=== PATIENT | male | born 1980 ===

== ENCOUNTER 2020-10-08 02:23 | Day surgery (SDC) | payer BC ==
[2020-10-08] MEDS ORDERED: FLUCONAZOLE PO (15:02)
[2020-10-08] MEDS ORDERED: VENLAFAXINE HC225 MG PO (15:02)
[2020-10-08] MEDS ORDERED: TOPIRAMATE ER25 MG PO (15:03)
[2020-10-08] MEDS ORDERED: DEPO-TESTO200 MG/14 IM (15:04)
--- NOTE | 2020-10-08 17:12 | NUR ---
PT MONITORED Q 15 MINUTES DURING INFUSION AND FOR ONE HOUR AFTER. NO S/S OF RXN. DC'D AMB WITH STEADY GAIT.
== END 2020-10-08 16:30 | disposition home or self-care (01) ==
LOC: ATC 02:23
DX: U07.1 COVID-19 (principal); E78.5 Hyperlipidemia, unspecified; G47.33 Obstructive sleep apnea (adult) (pediatric); E66.9 Obesity, unspecified; Z68.33 Body mass index [BMI] 33.0-33.9, adult
CPT/HCPCS: 96365; Q0243

== ENCOUNTER → 2021-07-02 | Outpatient (CLI) | payer SELFPAY ==
[~2021-07-02] MED LIST: DEPO-TESTO200 MG/14 IM; FLUCONAZOLE PO; TOPIRAMATE ER25 MG PO; VENLAFAXINE HC225 MG PO
[2021-07-02 18:23] LABS: Adenovirus F 40/41 Not Detected (NOT DETECT); Astrovirus Not Detected (NOT DETECT); Campylobacter Sp Not Detected (NOT DETECT); Cryptosporidium Not Detected (NOT DETECT); Cyclospora Cayetanensis Not Detected (NOT DETECT); E. Coli O157 Not Detected (NOT DETECT); Entamoeba Histolytica Not Detected (NOT DETECT); Enteroaggregative E. coli-EAEC Not Detected (NOT DETECT); Enteropathogenic E. coli-EPEC Not Detected (NOT DETECT); Enterotoxigenic E. coli-ETEC Not Detected (NOT DETECT); Giardia Lamblia Not Detected (NOT DETECT); Norovirus GI/GII Not Detected (NOT DETECT); Plesiomonas Shigelloides Not Detected (NOT DETECT); Rotavirus A Not Detected (NOT DETECT); Salmonella Sp Not Detected (NOT DETECT); Sapovirus Not Detected (NOT DETECT); Shiga Toxin-prod E. coli-STEC Not Detected (NOT DETECT); Shigella/Enteroin E. coli-EIEC Not Detected (NOT DETECT); Vibrio Cholerae Not Detected (NOT DETECT); Vibrio Sp Not Detected (NOT DETECT); Yersinia Enterocolitica Not Detected (NOT DETECT)
== END ==
LOC: LAB SHORT 14:08
PROVIDERS: Internal Medicine
DX: R19.7 Diarrhea, unspecified (principal)
CPT/HCPCS: 87507